=== PATIENT | male | born 1960 | race Hispanic/Latino ===

== ENCOUNTER 2019-04-01 10:58 | Inpatient (IN) | payer SELFPAY ==
[~2019-04-01] VITALS: Ht 165.1 cm; Wt 94.8 kg
[2019-04-01] MEDS ORDERED: KETOROLAC TROMETHAMINE 30MG/ML ONE (11:30)
[2019-04-01] MEDS ORDERED: ONDANSETRON HCL 4 MG/2 ML VIAL ONE (11:30)
[2019-04-01] MEDS ORDERED: SODIUM CHLORIDE 0.9% 1000ML 1,000 ML IV ONE ×2 (11:31→22:36)
[2019-04-01 11:35] LABS: CREATININE 0.6 mg/dL (0.5-1.5); POTASSIUM 3.6 mmol/L (3.5-5.1)
[2019-04-01 11:36] LABS: BASOPHILS % (AUTO) 0.3 % (0.0-5.0); EOSINOPHILS % (AUTO) 3.4 % (0.0-8.0); HEMATOCRIT 46.8 % (42-54); LYMPHOCYTES % (AUTO) 23.7 % (21.0-51.0); MEAN CORPUSCULAR HEMOGLOBIN 28.3 pg (27.0-33.0); MEAN CORPUSCULAR HGB CONC 32.3 g/dL (32.0-36.0); MEAN CORPUSCULAR VOLUME 87.6 fL (79-99); MONOCYTES % (AUTO) 12.1 % (3.0-13.0); NEUTROPHILS % (AUTO) 59.9 % (40.0-77.0); PLATELET COUNT (AUTO) 355 K/uL (130-400); RED BLOOD CELL COUNT(AUTO) 5.34 MIL/uL (4.50-6.20); RED CELL DISTRIBUTION WIDTH 13.2 % (11.0-15.5); WHITE BLOOD COUNT (AUTO) 10.8 K/uL (4.8-10.8)
[2019-04-01 11:39] LABS: ALBUMIN 3.5 g/dL (3.5-5.0); BILIRUBIN,TOTAL 0.5 mg/dL (0.2-1.0); TOTAL PROTEIN, SERUM 7.5 g/dL (6.0-8.3)
[2019-04-01 11:40] LABS: APPEARANCE,URINE Clear (CLEAR); BILIRUBIN,URINE Small (NEGATIVE); COLOR,URINE Dark Yellow (YELLOW); GLUCOSE, URINE (UA) Negative (NEGATIVE); KETONES,URINE Negative (NEGATIVE); LEUKOCYTE ESTERASE ,URINE Trace (NEGATIVE); NITRATE,URINE Negative (NEGATIVE); OCCULT BLOOD,URINE Trace (NEGATIVE); PROTEIN,URINE Trace mg/dL (NEGATIVE)
[2019-04-01 11:52] LABS: BACTERIA,URINE Moderate /HPF (None Seen); RBC,URINE 0-1 /HPF (0-1); SQUAMOUS EPITHELIAL CELL,UR 0-2 /HPF (0-2)
[2019-04-01 12:07] LABS: INR 1.1 (0.85-1.15); PARTIAL THROMBOPLASTIN TIME 30.1 SEC (26.3-35.5); PROTHROMBIN TIME 11.5 SEC (9.6-11.6)
[2019-04-01] MEDS ORDERED: MORPHINE SULFATE 4 MG/1ML SYG ONE (12:31)
[2019-04-01] MEDS ORDERED: MORPHINE SULFATE 2 MG/ML 1ML SYG IVP PRN (13:15)
[2019-04-01] MEDS ORDERED: ONDANSETRON HCL 4 MG/2 ML VIAL IVP PRN (13:15)
[2019-04-01] MEDS ORDERED: SODIUM CHLORIDE 0.9% 100 ML IV SCH (13:15)
[2019-04-01] MEDS ORDERED: BISACODYL 10 MG SUPP.RECT RC PRN (18:45)
[2019-04-01] MEDS ORDERED: FAMOTIDINE/PF 20 MG/2 ML VIAL IV ONE (22:35)
--- NOTE | 2019-04-02 02:10 | NUR ---
ADMISSION. TRANSFERRED FROM ER INTO ROOM 403 VIA STRETCHER. PT AWAKE, ALERT AND VERBALLY RESPONSIVE, NO C/O PAIN OR DISCOMFORT AT THIS TIME. NG TUBE OBSERVED TO RIGHT NARE, INTACT, TO BE CONNECTED TO L.I.S. ORIENTED TO ROOM, CALL BARCLAY WITHIN REACH, BED IN LOWEST POSITION. Addendum: 04/02/19 at 0212 by TERE BEAVER RN Amended: Links added.
[2019-04-02 02:15] VITALS: BP 159/84
[2019-04-02] MEDS: FAMOTIDINE/PF 20 MG/2 ML VIAL IV SCH ×3 (02:53→21:03)
[2019-04-02 04:16] VITALS: BP 135/78
[2019-04-02 08:00] VITALS: BP 144/80
[2019-04-02] MEDS: KETOROLAC TROMETHAMINE 15MG/ML IV PRN (09:37)
[2019-04-02 11:50] VITALS: BP 157/83
[2019-04-02 16:00] VITALS: BP 149/74
--- NOTE | 2019-04-02 17:15 | NUR ---
cm note met with patient and states resides at homealone, currently , requests to leave info on demographic sheet. states he is independent and active at home. no dme. no services. works and drives. dc plan is back to home at time of dc. pt states he has signed up for Obamacare and should be getting his insurance information active inthe next couple of weeks. Addendum: 04/02/19 at 1717 by EARLE MOMIN CM Amended: Links added.
[2019-04-02 20:20] VITALS: BP 155/88
[2019-04-03 00:20] VITALS: BP 150/75
[2019-04-03 04:20] VITALS: BP 138/82
[2019-04-03 05:31] LABS: BASOPHILS % (AUTO) 0.6 % (0.0-5.0); LYMPHOCYTES % (AUTO) 26.8 % (21.0-51.0); MEAN CORPUSCULAR HGB CONC 31.9 g/dL (32.0-36.0); MEAN CORPUSCULAR VOLUME 87.9 fL (79-99); MONOCYTES % (AUTO) 10.8 % (3.0-13.0); NEUTROPHILS % (AUTO) 57.8 % (40.0-77.0); PLATELET COUNT (AUTO) 326 K/uL (130-400); RED BLOOD CELL COUNT(AUTO) 4.78 MIL/uL (4.50-6.20); RED CELL DISTRIBUTION WIDTH 13.2 % (11.0-15.5); WHITE BLOOD COUNT (AUTO) 8.9 K/uL (4.8-10.8)
[2019-04-03 05:52] LABS: CREATININE 0.8 mg/dL (0.5-1.5); MAGNESIUM 2.2 mg/dL (1.80-2.40); POTASSIUM 3.6 mmol/L (3.5-5.1)
[2019-04-03 08:00] VITALS: BP 155/79
[2019-04-03] MEDS: FAMOTIDINE/PF 20 MG/2 ML VIAL IV SCH ×2 (09:45→21:12)
[2019-04-03] MEDS: KETOROLAC TROMETHAMINE 15MG/ML IV PRN (09:48)
[2019-04-03 12:00] VITALS: BP 140/72
[2019-04-03 16:00] VITALS: BP 155/92
[2019-04-03 20:12] VITALS: BP 143/82
[2019-04-04 00:16] VITALS: BP 153/84
[2019-04-04 04:16] VITALS: BP 135/77
[2019-04-04 08:08] VITALS: BP 147/84
[2019-04-04] MEDS: FAMOTIDINE/PF 20 MG/2 ML VIAL IV SCH (09:45)
[2019-04-04 11:02] VITALS: BP 149/88
--- NOTE | 2019-04-04 11:45 | NUR ---
DR LITTLEJOHN ROUNDED ON PATIENT SIGN OFF TO FOLLOW-UP NEEDED
--- NOTE | 2019-04-04 16:00 | NUR ---
PATIENT GIVEN DISCHARGE INSTRUCTIONS AND VERBALIZED UNDERSTANDING , EDUCATION GIVEN FOR SOFT DIET, IV REMOVEED WITH CATHETER INTACT PRESSURE HELD ON SITE THILL BLEEDING STOPPED THEN SITE DRESSED SECURELY. PATIENT TO FOLLOW-UP WITH DR NEWMAN 2 WEEK ( WALK IN APPOINTMENT ) PATIENT VERBALIZED UNDERSTANDING , DENIES PAIN AT THIS TIME , WALK TO LOBBY BY PCP. NO QUESTIONS OR CONCERNS AT THIS TIME
== END 2019-04-04 16:36 | disposition home or self-care (01) | DRG 390 ==
LOC: EDH 10:58 → OBSVTOIN 10:59 → EDHIP 10:59 → 4AH 04-02 02:06
PROVIDERS: ADMIT Internal Medicine; ATTEND Internal Medicine
PROC: 0D9670Z Drainage of Stomach with Drainage Device, Via Natural or Artificial Opening (ICD-10-PCS; principal; 2019-04-01)
DX: K56.699 Other intestinal obstruction unspecified as to partial versus complete obstruction (principal); R82.71 Bacteriuria; I10 Essential (primary) hypertension; E78.5 Hyperlipidemia, unspecified
CPT/HCPCS: 36415; 74021; 74176; 80048; 80053; 81001; 83690; 83735; 84484; 85025; 85610; 85730; 93005; G0378; J1885; J2270; J2405; J3490; J7030

== ENCOUNTER 2021-10-12 07:34 | Emergency (ER) | payer BC, OTHER, SELFPAY ==
[~2021-10-12] VITALS: Ht 165.1 cm; Wt 90.7 kg
[2021-10-12] MEDS ORDERED: ORPHENADRINE CITRATE 30 MG/ML ML IM ONE (08:00)
[2021-10-12] MEDS ORDERED: KETOROLAC 30MG VIAL (30MG/ML) IM ONE (08:00)
[2021-10-12 08:12] LABS: BASOPHILS % (AUTO) 0.5 % (0.0-5.0); EOSINOPHILS % (AUTO) 0.3 % (0.0-8.0); HEMATOCRIT 44.7 % (42-54); LYMPHOCYTES % (AUTO) 12.9 % (21.0-51.0); MEAN CORPUSCULAR HGB CONC 32.7 g/dL (32.0-36.0); MEAN CORPUSCULAR VOLUME 85.6 fL (79-99); NEUTROPHILS % (AUTO) 80.9 % (40.0-77.0); PLATELET COUNT (AUTO) 301 K/uL (130-400); RED BLOOD CELL COUNT(AUTO) 5.22 MIL/uL (4.50-6.20); RED CELL DISTRIBUTION WIDTH 13.3 % (11.0-15.5); WHITE BLOOD COUNT (AUTO) 12.8 K/uL (4.8-10.8)
[2021-10-12 08:56] LABS: ALBUMIN 3.6 g/dL (3.5-5.0); BILIRUBIN,TOTAL 0.4 mg/dL (0.2-1.0); CREATININE 0.9 mg/dL (0.5-1.5); TOTAL PROTEIN, SERUM 7.5 g/dL (6.0-8.3)
[2021-10-12] MEDS ORDERED: METH-662 PO (09:12)
[2021-10-12] MEDS ORDERED: NAPR375T6 PO (09:12)
[2021-10-12 09:24] VITALS: BP 134/65
== END 2021-10-12 09:24 | disposition home or self-care (01) ==
LOC: EDH 07:34
DX: M62.830 Muscle spasm of back (principal); E78.00 Pure hypercholesterolemia, unspecified; I10 Essential (primary) hypertension
CPT/HCPCS: 36415; 72072; 80053; 84484; 85025; 93005; 96372 ×2; 99284; J1885; J2360